=== PATIENT | male | born 1970 | race Caucasian/White ===

== ENCOUNTER 2022-05-28 06:25 | Day surgery (SDC) | payer BC ==
[~2022-05-28 06:25] MED LIST: Lactated Ringers 1,000 ML IV SCH; Lidocaine 1%/Sod Bicarbonate in NS 8.4% 1 ML Syringe IDERM PRN; Sodium Chloride 0.9% 10 ML Syringe FLUSH PRN; Sodium Chloride 0.9% 10 ML Syringe FLUSH SCH
[2022-05-28] MEDS ORDERED: Lidocaine 1% 2 ML ONE (07:00)
[2022-05-28] MEDS ORDERED: fentaNYL 100 MCG/2 ML SDV ONE ×2 (07:00→08:30)
[2022-05-28] MEDS ORDERED: Midazolam 1 MG/ML 2 ML SDV ONE (07:00)
[2022-05-28] MEDS ORDERED: Propofol 200 MG/20 ML SDV ONE ×5 (07:01→08:38)
[2022-05-28 09:23] VITALS: BP 134/77; PULSE 70
== END 2022-05-28 09:32 | disposition home or self-care (01) ==
LOC: JD.SDS 06:25
PROVIDERS: ATTEND Family Medicine
DX: Z12.11 Encounter for screening for malignant neoplasm of colon (principal); D12.5 Benign neoplasm of sigmoid colon; K57.30 Diverticulosis of large intestine without perforation or abscess without bleeding; J45.909 Unspecified asthma, uncomplicated; F32.A Depression, unspecified; K21.9 Gastro-esophageal reflux disease without esophagitis; F17.220 Nicotine dependence, chewing tobacco, uncomplicated; G47.30 Sleep apnea, unspecified; E66.9 Obesity, unspecified; Z79.899 Other long term (current) drug therapy; Z98.890 Other specified postprocedural states; Z68.41 Body mass index [BMI] 40.0-44.9, adult; Z91.048 Other nonmedicinal substance allergy status
CPT/HCPCS: 45385; J2250; J2704; J3010; J7120; J3490

== ENCOUNTER 2022-09-04 11:38 | Emergency (ER) | payer BC ==
[2022-09-04 13:15] LABS: BASOPHILS ABSOLUTE AUTO 0.08 K/mm3 (0.01-0.08); BASOPHILS PERCENT AUTO 1.1 % (0.1-1.2); EOSINOPHILS ABSOLUTE AUTO 0.22 K/mm3 (0.04-0.54); EOSINOPHILS PERCENT AUTO 2.9 (0.8-7.0); HEMATOCRIT 47.1 % (40.1-51.0); HEMOGLOBIN 15.7 gm/dl (13.7-17.5); IMMATURE GRAN ABSOLUTE AUTO 0.02 K/mm3 (0.00-0.10); IMMATURE GRAN PERCENT AUTO 0.3 % (<=1.0); LYMPHOCYTES ABSOLUTE AUTO 2.22 K/mm3 (1.32-3.57); LYMPHOCYTES PERCENT AUTO 29.7 % (21.8-53.1); MEAN CORPUSCULAR HGB CONC 33.3 g/dl (32.2-35.5); MEAN CORPUSCULAR VOLUME 90.1 fl (79.0-92.2); MEAN PLATELET VOLUME 9.3 fl (9.4-12.3); MONOCYTES ABSOLUTE AUTO 0.64 K/mm3 (0.30-0.82); MONOCYTES PERCENT AUTO 8.6 % (5.3-12.2); NEUTROPHILS ABSOLUTE AUTO 4.29 K/mm3 (1.78-5.38); NEUTROPHILS PERCENT AUTO 57.4 % (34.0-67.9); RED BLOOD CELL COUNT 5.23 M/mm3 (4.63-6.08); WHITE BLOOD CELL COUNT,WBC 7.47 K/mm3 (4.23-9.07)
[2022-09-04 13:16] LABS: PLATELET COUNT,PLT 330 K/mm3 (163-337)
[2022-09-04 13:30] LABS: PROTHROMBIN TIME 9.8 SECONDS (9.7-12.0)
[2022-09-04 13:32] LABS: PTT,PARTIAL THROMBOPLSTIN TIME 27.9 SECONDS (21.7-31.4)
[2022-09-04 13:39] LABS: INR < 0.93
[2022-09-04 13:49] LABS: A/G RATIO 0.9 (1-2); ALBUMIN 3.3 g/dl (3.4-5.0); ANION GAP 15.1 (5-15); BILIRUBIN TOTAL 0.3 mg/dL (0.2-1.0); BUN/CREATININE RATIO 9.1 (14-18); CALCIUM 8.9 mg/dL (8.5-10.1); CREATININE 1.1 mg/dL (0.7-1.3); EST CRCL DRUG DOSING (CG) 88.18 mL/min; MAGNESIUM 2.5 mg/dL (1.8-2.4); POTASSIUM,K 4.1 mEq/L (3.5-5.1); TSH 1.491 uIU/mL (0.358-3.74)
[2022-09-04 15:24] VITALS: BP 139/96; PULSE 92
== END 2022-09-04 14:30 | disposition home or self-care (01) ==
LOC: JD.ED 11:38
DX: R55 Syncope and collapse (principal); J45.909 Unspecified asthma, uncomplicated; K21.9 Gastro-esophageal reflux disease without esophagitis; E66.9 Obesity, unspecified; Z68.41 Body mass index [BMI] 40.0-44.9, adult; Z91.048 Other nonmedicinal substance allergy status; Z79.899 Other long term (current) drug therapy
CPT/HCPCS: 36415; 70450; 70450-26; 80053; 83735; 83880; 84443; 84484; 85025; 85610; 85730; 93005; 93010; 93246; 99284

== ENCOUNTER 2023-01-27 10:27 | Emergency (ER) | payer BC ==
[2023-01-27] MEDS ORDERED: Ketorolac 60 MG/2 ML SDV IM ONE (11:00)
[2023-01-27] MEDS ORDERED: tiZANidine 4 MG Tab PO ONE (11:00)
[2023-01-27 13:11] VITALS: BP 123/84; PULSE 75
== END 2023-01-27 12:52 | disposition home or self-care (01) ==
LOC: JD.ED 10:27
DX: M51.9 Unspecified thoracic, thoracolumbar and lumbosacral intervertebral disc disorder (principal); E66.01 Morbid (severe) obesity due to excess calories; J45.909 Unspecified asthma, uncomplicated; K21.9 Gastro-esophageal reflux disease without esophagitis; F17.210 Nicotine dependence, cigarettes, uncomplicated; Z68.41 Body mass index [BMI] 40.0-44.9, adult; Z86.16 Personal history of COVID-19; Z91.048 Other nonmedicinal substance allergy status; Z79.899 Other long term (current) drug therapy
CPT/HCPCS: 72131; 96372; 99283; A9270; J1885

== ENCOUNTER 2023-01-29 06:08 | Emergency (ER) | payer BC ==
[2023-01-29] MEDS ORDERED: Ketorolac 60 MG/2 ML SDV IM ONE (07:16)
[2023-01-29 07:35] VITALS: BP 136/86; PULSE 76
== END 2023-01-29 07:44 | disposition home or self-care (01) ==
LOC: JD.ED 06:08
DX: J45.909 Unspecified asthma, uncomplicated (principal); M54.50 Low back pain, unspecified; K21.9 Gastro-esophageal reflux disease without esophagitis; E66.9 Obesity, unspecified; Z68.42 Body mass index [BMI] 45.0-49.9, adult; F17.210 Nicotine dependence, cigarettes, uncomplicated; Z91.048 Other nonmedicinal substance allergy status; Z79.899 Other long term (current) drug therapy; Z79.891 Long term (current) use of opiate analgesic; Z90.49 Acquired absence of other specified parts of digestive tract; Z86.16 Personal history of COVID-19
CPT/HCPCS: 96372; 99283; J1885